=== PATIENT | female | born 1970 | race Caucasian/White ===

== ENCOUNTER 2016-11-15 17:47 | Emergency (ER) | payer MEDICAID, OTHER ==
[~2016-11-15] VITALS: Ht 165.1 cm; Wt 49.0 kg
[~2016-11-15 17:47] MED LIST: IBUP-23 PO
--- NOTE | 2016-11-15 18:06 | NUR ---
Patient discharged to home in stable conditon. Written and verbal after care instructions given. Patient verbalizes understanding of instructions.
== END 2016-11-15 18:14 | disposition home or self-care (01) ==
LOC: ER 17:49
DX: J02.9 Acute pharyngitis, unspecified (principal); K08.89 Other specified disorders of teeth and supporting structures; F10.20 Alcohol dependence, uncomplicated
CPT/HCPCS: A4663

== ENCOUNTER 2016-12-22 17:15 | Emergency (ER) | payer MEDICAID ==
[~2016-12-22] VITALS: Ht 165.1 cm; Wt 49.0 kg
--- NOTE | 2016-12-22 18:04 | NUR ---
PT IN ROOM AWATING MSE.
--- NOTE | 2016-12-22 18:59 | NUR ---
MOTRIN ADMINISTERED, STREP THROAT SPECIMENS TO LAB
[2016-12-22] MEDS ORDERED: IBUPROFEN 600 MG TABLET PO ONE (19:00)
--- NOTE | 2016-12-22 19:00 | NUR ---
SBAR REPORT TO JOSE GARNICA. PT RESTING, POSITIONED FOR COMFORT.
[2016-12-22] MEDS ORDERED: IBUPROFEN 600 MG TABLET ONE (19:04)
--- NOTE | 2016-12-22 20:13 | NUR ---
Patient discharged to home in stable conditon. Written and verbal after care instructions given. Patient verbalizes understanding of instructions.
== END 2016-12-22 20:14 | disposition home or self-care (01) ==
LOC: ER 17:15
DX: K04.7 Periapical abscess without sinus (principal); H92.01 Otalgia, right ear; R50.9 Fever, unspecified; F10.20 Alcohol dependence, uncomplicated
CPT/HCPCS: 36415; 86403; 87070; A4663

== ENCOUNTER 2023-08-26 15:52 | Emergency (ER) | payer MEDICAID, OTHER ==
[~2023-08-26] VITALS: Ht 165.1 cm; Wt 49.9 kg
[2023-08-26 17:40] VITALS: BP 122/70; TEMP 98; O2SAT 99
== END 2023-08-26 17:41 | disposition home or self-care (01) ==
LOC: ER 15:57
DX: S92.202A Fracture of unspecified tarsal bone(s) of left foot, initial encounter for closed fracture (principal); Z79.899 Other long term (current) drug therapy; Z60.2 Problems related to living alone; W01.0XXA Fall on same level from slipping, tripping and stumbling without subsequent striking against object, initial encounter; Y93.89 Activity, other specified; Y92.89 Other specified places as the place of occurrence of the external cause; Y99.8 Other external cause status
CPT/HCPCS: 73610; A4606; A4663